=== PATIENT | male | born 1970 | race Caucasian/White ===

== ENCOUNTER 2020-04-28 23:38 | Emergency (ER) | payer OTHER ==
[~2020-04-28] VITALS: Ht 182.9 cm; Wt 92.2 kg
--- NOTE | 2020-04-29 00:14 | NUR ---
PT STATES THAT HE BEGAN EXPERIENCING BODY WIDE TINGLING EARLIER THIS EVENING, TOOK HIS BP AND NOTED IT WAS HIGH DESPITE REGULAR MEDICATION. NO OTHER S/S. IV STARTED, LABS DRAWN AND SENT. PT DENIES ANY NEEDS OR CONCERNS AT THIS TIME. CALL LIGHT IN REACH.
[2020-04-29 00:25] LABS: BASOPHILS # (AUTO) 0.03 x10^3/uL (0-0.1); BASOPHILS % (AUTO) 0 % (0-1); EOSINOPHILS # (AUTO) 0.07 x10^3/uL (0-0.4); EOSINOPHILS % (AUTO) 1 % (1-7); LYMPHOCYTES % (AUTO) 21 % (22-44); MD NO; MEAN CORPUSCULAR HEMOGLOBIN 31.1 pg (27.5-34.5); MEAN CORPUSCULAR HGB CONC 34.1 g/dL (33.2-36.2); MEAN CORPUSCULAR VOLUME 91.2 fL (81-97); MEAN PLATELET VOLUME 11.4 fL (7.4-10.4); MONOCYTES # (AUTO) 1.09 x10^3/uL (0.2-0.8); MONOCYTES % (AUTO) 12 % (2-9); NEUTROPHILS # (AUTO) 5.81 x10^3/uL (1.8-6.8); NEUTROPHILS % (AUTO) 65 % (42-75); PLATELET COUNT 209 x10^3/uL (130-400); RED BLOOD COUNT 4.68 x10^6/uL (4.38-5.82); RED CELL DISTRIBUTION WIDTH 13.6 % (9.4-14.8)
[2020-04-29 00:30] LABS: ALANINE AMINOTRANSFERASE 82 U/L (12-78); ALBUMIN 3.9 g/dL (3.4-5.0); ANION GAP 7 mmol/L (5-15); CALCIUM 8.5 mg/dL (8.5-10.1); CHLORIDE 105 mmol/L (98-107)
[2020-04-29] MEDS ORDERED: LABETALOL 5MG/ML, 20ML IVPush ONE (00:30)
[2020-04-29] MEDS ORDERED: NITROGLYCERIN OINT 2%, 1GM TP ONE ×2 (00:30→00:31)
[2020-04-29] MEDS ORDERED: SODIUM CHLORIDE FLUSH 10ML SYR IVF ONE (00:30)
[2020-04-29] MEDS ORDERED: LABETALOL 5MG/ML, 20ML ONE (00:31)
[2020-04-29 00:35] LABS: ALKALINE PHOSPHATASE 109 U/L (45-117); BILIRUBIN,TOTAL 0.4 mg/dL (0.2-1.0); CREATININE 1.07 mg/dL (0.7-1.3); TOTAL PROTEIN 7.6 g/dL (6.4-8.2); TROPONIN I < 0.015 ng/mL (0.000-0.045)
[2020-04-29 01:24] VITALS: BP 144/92
[2020-04-29] MEDS ORDERED: LISI1TAB19 PO (17:45)
[2020-04-29] MEDS ORDERED: ATOR-2 PO (17:45)
[2020-04-29] MEDS ORDERED: OMEG1CAP39 PO (17:47)
[2020-04-29] MEDS ORDERED: UBID100C24 PO (17:47)
[2020-04-29] MEDS ORDERED: METO-93 PO (17:47)
[2020-04-29] MEDS ORDERED: ASPI-496 PO (17:47)
== END 2020-04-29 02:04 | disposition home or self-care (01) ==
LOC: ED 04-29 01:11
DX: I10 Essential (primary) hypertension (principal); R94.5 Abnormal results of liver function studies; R94.31 Abnormal electrocardiogram [ECG] [EKG]; E78.5 Hyperlipidemia, unspecified
CPT/HCPCS: 36415; 80053; 84484; 85025; 93005; 96374; 99284

== ENCOUNTER 2020-04-29 17:27 | Emergency (ER) | payer OTHER ==
[~2020-04-29] VITALS: Ht 182.9 cm; Wt 90.5 kg
[2020-04-29 17:44] VITALS: BP 163/100
[2020-04-29] MEDS ORDERED: LISI1TAB19 PO (17:45)
[2020-04-29] MEDS ORDERED: ATOR-2 PO (17:45)
[2020-04-29] MEDS ORDERED: ASPI-496 PO (17:47)
[2020-04-29] MEDS ORDERED: METO-93 PO (17:47)
[2020-04-29] MEDS ORDERED: UBID100C24 PO (17:47)
[2020-04-29] MEDS ORDERED: OMEG1CAP39 PO (17:47)
--- NOTE | 2020-04-29 17:53 | NUR ---
THIS IS A 49 YO M W/ C/O HTN DESPITE TAKING HOME MEDS. CURRENT BP 163/100. PT DENIES CP/LONG/SOB. PT REPORTS HIS BODY FEELS TINGLY OTHER JO NO COMPLAINTS. OTHER VSS. PT RESTING ON GURNEY W/ CALL LIGHT IN REACH AND FAMILY AT BEDSIDE. DENIES FURTHER NEEDS. AWAITING ED EVAL.
--- NOTE | 2020-04-29 18:03 | NUR ---
MED REC DONE.
== END 2020-04-29 19:00 | disposition home or self-care (01) ==
LOC: ED 18:43
DX: I10 Essential (primary) hypertension (principal); E78.5 Hyperlipidemia, unspecified; R94.31 Abnormal electrocardiogram [ECG] [EKG]
CPT/HCPCS: 93005; 99283